=== PATIENT | male | born 1995 | race Caucasian/White ===

== ENCOUNTER 2019-12-22 05:50 | Inpatient (IN) | payer OTHER ==
[2019-12-22] MEDS ORDERED: FOLIC ACID 1 MG TAB As Ordered ONE (16:11)
[2019-12-22] MEDS ORDERED: MULTIVITAMINS/MINERALS THERAP 1 TAB As Ordered ONE (16:11)
[2019-12-22] MEDS ORDERED: NICOTINE 21MG/24HR 1 EA TRANSDERMAL As Ordered ONE (16:12)
[2019-12-22] MEDS ORDERED: ACETAMINOPHEN TAB 650MG DOSE (2X325MG) As Ordered ONE (20:20)
[2019-12-23] MEDS ORDERED: DIVALPROEX 250 MG TAB As Ordered ONE ×2 (08:59→21:25)
[2019-12-23] MEDS ORDERED: NICOTINE 21MG/24HR 1 EA TRANSDERMAL As Ordered ONE (09:00)
[2019-12-23] MEDS ORDERED: THIAMINE 100 MG TAB As Ordered ONE ×2 (09:00→21:26)
[2019-12-23] MEDS ORDERED: MULTIVITAMINS/MINERALS THERAP 1 TAB As Ordered ONE (09:00)
[2019-12-23] MEDS ORDERED: FOLIC ACID 1 MG TAB As Ordered ONE (09:00)
[2019-12-24] MEDS ORDERED: MULTIVITAMINS/MINERALS THERAP 1 TAB As Ordered ONE (09:02)
[2019-12-24] MEDS ORDERED: THIAMINE 100 MG TAB As Ordered ONE ×2 (09:02→21:10)
[2019-12-24] MEDS ORDERED: DIVALPROEX 250 MG TAB As Ordered ONE ×2 (09:02→21:09)
[2019-12-24] MEDS ORDERED: NICOTINE 21MG/24HR 1 EA TRANSDERMAL As Ordered ONE (09:03)
[2019-12-24] MEDS ORDERED: FOLIC ACID 1 MG TAB As Ordered ONE (09:03)
[2019-12-24] MEDS ORDERED: SERTRALINE HCL 25 MG TABLET As Ordered ONE (10:11)
[2019-12-25] MEDS ORDERED: SERTRALINE HCL 25 MG TABLET As Ordered ONE (08:26)
[2019-12-25] MEDS ORDERED: DIVALPROEX 250 MG TAB As Ordered ONE (08:26)
[2019-12-25] MEDS ORDERED: MULTIVITAMINS/MINERALS THERAP 1 TAB As Ordered ONE (08:26)
[2019-12-25] MEDS ORDERED: FOLIC ACID 1 MG TAB As Ordered ONE (08:26)
[2019-12-25] MEDS ORDERED: NICOTINE 21MG/24HR 1 EA TRANSDERMAL As Ordered ONE (08:26)
[2020-02-04 12:08] LABS: APPEARANCE, URINE MANUAL HAZY (CLEAR)
[2020-02-04 12:09] LABS: BILIRUBIN, URINE MANUAL NEGATIVE (NEGATIVE); BLOOD URINE MANUAL NEGATIVE (NEGATIVE); COLOR, URINE MANUAL YELLOW (YELLOW); GLUCOSE, URINE (UA) MANUAL NEGATIVE (NEGATIVE); KETONE, URINE MANUAL 1+ mg/dL (NEGATIVE); LEUKOCYTE ESTERASE, URINE MAN TRACE (NEGATIVE); NITRITE, URINE MANUAL NEGATIVE (NEGATIVE); PROTEIN, URINE MANUAL NEGATIVE (NEGATIVE); RBC, URINE NONE SEEN /hpf (0-3); SQUAMOUS EPITHELIAL CELL URINE SMALL AMOUNT /hpf (SMALL AMT); UROBILINOGEN, URINE MANUAL NORMAL (NORMAL)
[2020-02-04 12:10] LABS: AMORPHOUS SEDIMENT, URINE SMALL AMOUNT (NEGATIVE); BACTERIA, URINE SMALL AMOUNT; HYALINE CAST, URINE NONE SEEN /lpf (0-1); MUCUS, URINE MOD AMOUNT (NEGATIVE)
[2020-02-04 13:38] LABS: BASO % 0.2 % (0.0-1.0); EOS # 0.1 10^3/uL (0.0-0.5); EOS % 0.5 % (0.0-3.0); HEMATOCRIT 48.9 % (42.0-52.0); HEMOGLOBIN 16.6 g/dl (13.5-17.5); LYMPH # 2.1 10^3/uL (1.5-5.0); LYMPH % 14.6 % (24.0-44.0); MEAN CORPUSCULAR HEMOGLOBIN 31.1 pg (27.0-33.0); MEAN CORPUSCULAR HGB CONC 33.9 g/dl (32.0-36.5); MEAN CORPUSCULAR VOLUME 91.6 fl (80.0-96.0); MONO # 0.9 10^3/uL (0.0-0.8); MONO % 6.7 % (0.0-5.0); NEUTROPHILS % 77.7 % (36.0-66.0); PLATELET COUNT, AUTOMATED 199 10^3/uL (150-450); RED BLOOD COUNT 5.34 10^6/uL (4.30-6.10); WHITE BLOOD COUNT 14.1 10^3/uL (4.0-10.0)
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
--- NOTE | 2020-02-15 14:43 | MHDS ---
PSYCHIATRIC DATE OF ADMISSION: 12/22/2019 DATE OF DISCHARGE: 12/25/2019 DISCHARGE DIAGNOSES: 1. Major depressive disorder. 2. Alcohol use disorder. 3. Nicotine use disorder. DISCHARGE MEDICATIONS: - Depakote 250 mg twice daily - Zoloft 50 mg once daily Patient was given paper prescription for these medications in his discharge packet. DISPOSITION: Patient is discharged to [place]. Recommended patient to be escorted by personnel as well as be supervised on his medications. DIET: Regular. ACTIVITY: As tolerated. BRIEF REASON FOR ADMISSION: Patient was brought in on 12/22/2019 by a police justice. He reported that he was arguing with his because he wanted to go out with his friends. He later texted his , reporting that he was going to kill himself. Patient presents with multiple stressors, having been [facility] recently, currently going through a divorce, being chaptered out of the . He has several legal problems, and in turn he has been drinking alcohol more frequently, reporting symptoms of depression at this time. He has been psychiatrically hospitalized numerous times. States he is diagnosed with attention deficit hyperactivity disorder, posttraumatic stress disorder, and during those hospitalizations he was trialed on Depakote and Abilify. Patient was cooperative with the admission. He was not observed with any manic or psychotic symptoms. He did report anxiety, having difficulty sleeping, muscle tension. In yesterday's interview, patient demanded to be discharged yesterday. He reports that he had family members who were advocating for him and trying to get him to an inpatient substance abuse treatment facility in [place]. He stated that his family was coming to help him with that, and he wanted to be admitted to this treatment facility next week. Patient was very angry, and his speech was very demanding. Patient did appear somewhat disingenuous when he was telling me this information and stated that he needed to be discharged soon in order to get the [employer] to sign off and allow him to be cleared for substance abuse treatment. When speaking to the materials planner/production planner at [facility], she reinforced that this is not how [facility] would facilitate this. In today's interview, patient reported that he had stabilized from his depression. He states that he is still depressed but that it is at a reasonable rate. He reported it to be 4/10. His anxiety was 5/10. He states that he wants to be able to follow his chain of command and report to [facility] about the plans that he has, stating that he understands that he may not be able to go to this treatment facility. He was reporting no side effects from the Depakote and Zoloft inpatient. Stated that he felt that he was stable for discharge. MENTAL STATUS EXAMINATION: Patient is alert and oriented times three, dressed appropriate. Hygiene and grooming are good. Patient continues to have erythema in the left conjunctiva. According to a radiology report, he has fractures of the floor of the left orbit and left maxillary sinus. This was reported to [facility]. His vision is intact. He reports no blurry or double vision with his injury. Eye contact is good. Speech is normal rate, tone, and volume. He is spontaneous and fluent. Thought process is linear and goal oriented. His thought content is positive for mild depressive symptoms, guilt, and he states that he does not have any suicidal or homicidal ideation. He denies thought delusions and auditory, visual, or tactile hallucinations. He is not manic, psychotic, or paranoid. His mood is depressed. His affect is flat, incongruent with his mood. Memory is intact. Insight and judgment are fair. DISPOSITION: Discharge him back to [facility]. I spoke with the doctor at [facility] prior to this dictation. They are aware of the patient's medications and radiology findings. Patient is psychiatrically stable for discharge today, and he met criteria for discharge by the treatment team. DEMOND
[2020-03-16 11:49] LABS: ACETAMINOPHEN LEVEL < 2.0 UG/ML (10.0-30.0); ALBUMIN 4.1 GM/DL (3.2-5.2); ALT/SGPT 41 U/L (12-78); AMPHETAMINES LEVEL URINE NEGATIVE (NEGATIVE); BARBITURATES URINE NEGATIVE (NEGATIVE); BENZODIAZEPINES URINE NEGATIVE (NEGATIVE); BILIRUBIN,DIRECT < 0.1 MG/DL (0.0-0.2); BILIRUBIN,TOTAL 0.2 MG/DL (0.2-1.0); BLOOD UREA NITROGEN 20 MG/DL (7-18); CALCIUM LEVEL 8.8 MG/DL (8.5-10.1); CANNABINOIDS URINE NEGATIVE (NEGATIVE); CARBON DIOXIDE LEVEL 27 MEQ/L (21-32); CHLORIDE LEVEL 108 MEQ/L (98-107); COCAINE METABOLITE URINE NEGATIVE (NEGATIVE); CREATININE FOR GFR 1.26 MG/DL (0.70-1.30); ETHYL ALCOHOL (ETHANOL) 0.005 % (0.000-0.010); GLOMERULAR FILTRATION RATE > 60.0 (>60); GLUCOSE, FASTING 98 MG/DL (70-100); METHADONE URINE NEGATIVE (NEGATIVE); OPIATES URINE NEGATIVE (NEGATIVE); PHENCYCLIDINE URINE NEGATIVE (NEGATIVE); POTASSIUM SERUM 4.2 MEQ/L (3.5-5.1); SODIUM LEVEL 139 MEQ/L (136-145)
== END 2019-12-25 13:10 | disposition home or self-care (01) | DRG 881 ==
LOC: M ED 05:50 → M PSY 09:54
PROVIDERS: ADMIT Internal Medicine; ATTEND Internal Medicine
DX: F32.9 Major depressive disorder, single episode, unspecified (principal); R45.851 Suicidal ideations; S02.842A Fracture of lateral orbital wall, left side, initial encounter for closed fracture; F17.210 Nicotine dependence, cigarettes, uncomplicated; Z63.5 Disruption of family by separation and divorce; F43.10 Post-traumatic stress disorder, unspecified; F63.9 Impulse disorder, unspecified; F90.9 Attention-deficit hyperactivity disorder, unspecified type; Z65.3 Problems related to other legal circumstances; F10.10 Alcohol abuse, uncomplicated; W22.8XXA Striking against or struck by other objects, initial encounter; Y92.810 Car as the place of occurrence of the external cause